=== PATIENT | male | born 1985 | race Caucasian/White ===

== ENCOUNTER 2017-05-27 05:39 | Emergency (ER) | payer SELFPAY ==
[~2017-05-27 05:39] MED LIST: TRAM-420 PO
[2017-05-27] MEDS ORDERED: PHENAZOPYRIDINE 200 MG TAB PO ONE (05:55)
--- NOTE | 2017-05-27 05:55 | ER Report ---
History and Physical Time Seen By MD: 05:54 Hx. of Stated Complaint: Pt having trouble urinating. Pt states his "penis hurts" since last friday05/23/17 HPI/ROS 31-year-old male presents with sharp pain in his penis that started around 5:15 AM this morning. Had a similar spell proximally 5 days ago and resolved on its own. Has had urinary burning and frequency for about a week. His had some intermittent lower abdominal pain over that timeframe as well. No abdominal pain right now. No nausea or vomiting. He's had no back pain or flank pain. He sexually active. Denies any discharge from his penis. Denies any testicular pain. Has not had any back pain or flank pain and has not noticed any blood in his urine or his ejaculate. He has not had a fever, chills, chest pain, headache , sore throat, vision changes, rash, migrating arthralgias or any generalized malaise Pertinent review of systems per history of present illness Allergies: Coded Allergies: No Known Drug Allergies (Unverified , 01/24/17) Home Meds Active Scripts Phenazopyridine Hcl (PHENAZOPYRIDINE HCL) 200 Mg Tablet, 200 MG PO TID Y for urinary burning, #10 TAB 0 Refills Prov:ARIANNA CHAVIS MD 05/27/17 Discontinued Scripts Tramadol Hcl (TRAMADOL HCL) 50 Mg Tablet, 50 MG PO Q6H Y for PAIN, #12 TAB 0 Refills Prov:HARVINDER GARDNER MD 01/24/17 Hx Substance Use Disorder: No Hx Alcohol Use: Yes Constitutional Vital Sign - Last 24 Hours 05/27/17 05/27/17 05/27/17 05/27/17 05:43 05:47 05:54 06:00 Temp 97.8 Pulse 81 77 Resp 20 B/P (MAP) 124/100 124/100 (108) 126/97 (107) Pulse Ox 96 94 O2 Delivery Room Air 05/27/17 05/27/17 05/27/17 05/27/17 06:09 06:30 06:39 07:26 Pulse 70 68 73 B/P (MAP) 139/82 (101) 116/78 (91) Pulse Ox 95 94 96 O2 Delivery Room Air Physical Exam Physical exam: Vital signs noted. General: Patient alert and in no acute distress but obvious discomfort. [ Does not appear ill]. Skin: [Warm, dry, without rashes, or lesions]. Head: [Normocephalic, atraumatic]. Eye: [Normal conjunctiva]. Cardiovascular: [Regular rate and rhythm without gallops murmurs or rubs. Normal peripheral perfusion with no edema noted]. Respiratory: [Lungs clear to auscultation bilaterally with nonlabored respirations. Breath sounds are equal with symmetric expansion]. Gastrointestinal: [Abdomen soft, nontender. Normal bowel sounds with no organomegaly. No guarding or rebound]. : Testicles without masses or tenderness bilaterally. Penis without any discharge. No palpable masses. Tender along mid to distal shaft of penis. No tenderness along the glans. Back: [Nontender with normal range of motion and normal alignment]. Musculoskeletal: [Normal range of motion throughout with normal strength. No tenderness, swelling or deformities noted. Moves all extremities equally]. Neurologic: [Patient alert and oriented 4 with no focal neuro deficits cranial nerves II - XII grossly intact. Patient has normal speech] Psychiatric: [Patient is cooperative with appropriate mood and affect] Medical Decision Making Data Points Laboratory Hematology Test 05/27/17 00:00 05/27/17 06:33 Urine Color Hilda Urine Clarity Slightly-cloudy Urine pH 6.0 pH (4.8-9.5) Urine Specific [place] 1.021 Urine Protein Negative mg/dL (NEGATIVE) Urine Glucose (UA) Negative mg/dL (NEGATIVE) Urine Ketones Trace mg/dL (NEGATIVE) Urine Blood Negative (NEGATIVE) Urine Nitrite Positive (NEGATIVE) Urine Bilirubin Negative (NEGATIVE) Urine Urobilinogen 2.0 mg/dL (0.2-1.9) Urine Leukocyte Esterase Negative (NEGATIVE) Urine RBC None /HPF (0-2/HPF) Urine WBC 1 /HPF (0-5/HPF) Urine Squamous Epithelial Cells Few /LPF (</=FEW) Urine Amorphous Crystals Moderate /HPF Urine Bacteria Negative /HPF (NONE-FEW) Urine Mucus None /HPF (NONE-FEW) Chemistry Test 05/27/17 00:00 05/27/17 06:33 Urine Color Hilda Urine Clarity Slightly-cloudy Urine pH 6.0 pH (4.8-9.5) Urine Specific [place] 1.021 Urine Protein Negative mg/dL (NEGATIVE) Urine Glucose (UA) Negative mg/dL (NEGATIVE) Urine Ketones Trace mg/dL (NEGATIVE) Urine Blood Negative (NEGATIVE) Urine Nitrite Positive (NEGATIVE) Urine Bilirubin Negative (NEGATIVE) Urine Urobilinogen 2.0 mg/dL (0.2-1.9) Urine Leukocyte Esterase Negative (NEGATIVE) Urine RBC None /HPF (0-2/HPF) Urine WBC 1 /HPF (0-5/HPF) Urine Squamous Epithelial Cells Few /LPF (</=FEW) Urine Amorphous Crystals Moderate /HPF Urine Bacteria Negative /HPF (NONE-FEW) Urine Mucus None /HPF (NONE-FEW) Urinalysis Test 05/27/17 06:33 Urine Color [place] Urine Clarity Slightly-cloudy Urine pH 6.0 pH (4.8-9.5) Urine Specific [place] 1.021 Urine Protein Negative mg/dL (NEGATIVE) Urine Glucose (UA) Negative mg/dL (NEGATIVE) Urine Ketones Trace mg/dL (NEGATIVE) Urine Blood Negative (NEGATIVE) Urine Nitrite Positive (NEGATIVE) Urine Bilirubin Negative (NEGATIVE) Urine Urobilinogen 2.0 mg/dL (0.2-1.9) Urine Leukocyte Esterase Negative (NEGATIVE) Urine RBC None /HPF (0-2/HPF) Urine WBC 1 /HPF (0-5/HPF) Urine Squamous Epithelial Cells Few /LPF (</=FEW) Urine Amorphous Crystals Moderate /HPF Urine Bacteria Negative /HPF (NONE-FEW) Urine Mucus None /HPF (NONE-FEW) ED Course/Re-evaluation ED Course 31-year-old male with a chief complaint of sharp penile pain that started approximately 30-40 minutes prior to arrival. Similar spell several days ago. Some associated urinary frequency and burning for a couple weeks but no significant pain like this until the spell several days ago. Exam without any evidence of testicular pain. A urine without evidence of infection. We did obtain a GC and chlamydia with a dirty urine. Given a dose of Rocephin and azithromycin due to the severity of his symptoms. Will have patient follow-up in the next 3-5 days with a local physician. Given list encouraged to follow- up. Will call with follow-up results of GC and chlamydia are positive. Niece return for any new or worsening symptoms. Decision to Disposition Date: May 27, 2017 Decision to Disposition Time: 06:57 Depart Departure Latest Vital Signs Vital Signs Date Time Temp Pulse Resp B/P (MAP) Pulse Ox O2 Delivery O2 Flow Rate FiO2 05/27/17 07:26 73 116/78 (91) 96 Room Air 05/27/17 05:43 97.8 20 Impression: Primary Impression: Dysuria Condition: Improved Disposition: HOME OR SELF-CARE New Scripts Phenazopyridine Hcl (PHENAZOPYRIDINE HCL) 200 Mg Tablet 200 MG PO TID Y for urinary burning, #10 TAB 0 Refills Prov: ARIANNA CHAVIS MD 05/27/17 Patient Instructions: Dysuria (ED) Additional Instructions: Follow-up and establish care with local physician in the next 3-5 days or can also call either urology clinic for close follow-up. Return for any new or worsening symptoms. Take Pyridium for the next 3-5 days. Also take ibuprofen or Aleve scheduled for next 5-7 days. ARIANNA CHAVIS MD May 27, 2017 05:55
[2017-05-27] MEDS ORDERED: NAPROXEN 500 MG TAB PO ONE (06:10)
[2017-05-27] MEDS ORDERED: AZITHROMYCIN 250 MG TAB PO ONE (06:45)
[2017-05-27] MEDS ORDERED: cefTRIAXone 250 MG VIAL IM ONE (06:45)
[2017-05-27] MEDS ORDERED: LIDOCAINE 1%MDV(*)200 MG/20 ML 1 ML ONE (06:50)
[2017-05-27] MEDS ORDERED: PHEN200T32 PO (07:20)
[2017-05-27 07:26] VITALS: BP 116/78
== END 2017-05-27 07:33 | disposition home or self-care (01) ==
LOC: ER 06:24
DX: R30.0 Dysuria (principal)
CPT/HCPCS: 81001; 87491; 87591; 96372; 99283; J0696; Q0144